=== PATIENT | female | born 1950 | race Caucasian/White ===

== ENCOUNTER 2019-07-17 14:11 | Emergency (ER) | payer MEDICARE, OTHER ==
[~2019-07-17] VITALS: Ht 180.3 cm; Wt 111.1 kg
[2019-07-17] MEDS ORDERED: ELIQUIS2.5 MG PO (14:43)
== END 2019-07-17 16:13 | disposition home or self-care (01) ==
LOC: ER 14:11
DX: S81.811A Laceration without foreign body, right lower leg, initial encounter (principal); Z23 Encounter for immunization; Z88.5 Allergy status to narcotic agent; W25.XXXA Contact with sharp glass, initial encounter
CPT/HCPCS: 73590; 90471; 99283-25

== ENCOUNTER 2019-10-12 06:40 | Emergency (ER) | payer MEDICARE ==
[~2019-10-12] VITALS: Ht 177.8 cm; Wt 111.1 kg
[~2019-10-12 06:40] MED LIST: ELIQUIS2.5 MG PO
[2019-10-12] MEDS ORDERED: Vibramycin100 MG PO (07:12)
[2019-10-12] MEDS ORDERED: PANT20 PO (07:27)
[2019-10-12] MEDS ORDERED: EUTHYROX75 MCG PO (07:28)
[2019-10-12] MEDS ORDERED: LAMO100 PO (07:28)
[2019-10-12] MEDS ORDERED: STOOL SOFTENER (07:28)
[2019-10-12] MEDS ORDERED: DIVA125EC PO (07:28)
[2019-10-12] MEDS ORDERED: ESTRADIOL1 M1 PO (07:29)
[2019-10-12] MEDS ORDERED: POTA8 PO (07:29)
[2019-10-12] MEDS ORDERED: FERSU300 PO (07:29)
[2019-10-12] MEDS ORDERED: ZESTRIL40 M1 PO (07:30)
[2019-10-12] MEDS ORDERED: BREO ELLIPTA 11 EAC1 (07:30)
[2019-10-12] MEDS ORDERED: ELIQUIS5 MG PO (07:30)
[2019-10-12] MEDS ORDERED: Ventolin/Prove6.7 GM (07:31)
[2019-10-12] MEDS ORDERED: FISH OIL 1,0001 EAC7 (07:31)
== END 2019-10-12 07:32 | disposition home or self-care (01) ==
LOC: ER 06:40
DX: L03.116 Cellulitis of left lower limb (principal); L03.115 Cellulitis of right lower limb; I87.8 Other specified disorders of veins; J45.909 Unspecified asthma, uncomplicated; Z86.718 Personal history of other venous thrombosis and embolism; Z88.5 Allergy status to narcotic agent; Z79.899 Other long term (current) drug therapy
CPT/HCPCS: 99283